=== PATIENT | male | born 1970 | race Caucasian/White ===

== ENCOUNTER 2024-11-19 13:05 | Outpatient (AMB) | payer OTHER, SELFPAY ==
--- NOTE | 2024-11-19 13:12 | A.OFFVIS_ITS ---
Vital Signs 11/19/24 13:14 Height 6 ft 2 in Weight 208 lb 8 oz BMI 26.8 BP 147/94 H Blood Pressure Location Lt brachial Position Sitting Pulse 84 Pulse Source Pulse Oximeter Pulse Oximetry (%) 100 Oxygen Delivery Method Room Air Intake Visit Reasons: Neck pain Intake Note: Pain today 12/24 Teletypewriter Installer Required: No Accompanied by: Self / Same As Patient Allergies No Known Allergies Allergy (Verified 11/19/24 13:14) HPI Comments Details: The patient is a 54-year-old male presenting with neck pain and cervical spine conditions. The patient reports that the pain started about a year and a half ago, initially on the right side. 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 The pain recently exacerbated around 3 months ago, reaching a constant severity of 8-10/10, impacting daily activities, work and sleep quality. The pain is radiating to the right arm, particularly affecting the thumb, with associated numbness and tightness accentuated by certain movements, such as overhead lifting. Denies previous spine surgery or injections. Patient is starting physical therapy on 11/20/24 at [facility]. Recent cervical spine MRI is noted for multilevel cervical degenerative changes with facet arthropathy and bone spurs, most pronounced at C5-C6 with disc extrusion contributing to severe bilateral foraminal stenosis. - Onset and Timing: Initial onset approximately 1.5 years ago; recent exacerbation 3 months prior. - Quality and Character: Constant, severe, described as tightness, throbbing, pounding, stabbing, sharp, tugging, pulling, wrenching, burning, tingling, sore, dull, hurting, aching; score 8-10/10. - Primary Location: Right side of the neck. - Radiation: Right arm down to the thumb. - Exacerbating Factors: Overhead lifting, certain neck movements, and sitting at a kitchen table. - Alleviating Factors: Certain neck positions; looking down feels better. - Functional Interference: Affects sleep (3-5 hours), driving, and sitting positions. - Affect: Pain has significantly impacted mood and sleep. - Analgesia: Current pain level ranges from 8 to 10. Medications tried include ibuprofen, muscle relaxers, and gabapentin with limited success. - Adverse Effects: No significant adverse effects reported; gabapentin resulted in feeling unwell. - Activities of Daily Living: Significantly affected, notably sleep and driving. - Aberrant Drug Related Behaviors: None reported. Oswestry Neck Pain Disability Score=19 [facility] Medical History (Updated 11/20/24 @ 20:04 by ZOHRA Gomez) Hypercholesteremia Degenerative disc disease, cervical Chronic neck and back pain Cervical spondylosis Cervical radiculopathy Social History (Updated 11/19/24 @ 13:27 by Tala Palmer) Alcohol intake: current Patient Tobacco Use Status: Never used Tobacco Review of Systems Const Details: - Musculoskeletal: Reports neck pain on the right side, radiation to the right arm, tightness, and effect on sleep. Denies shoulder, jaw, or ear pain. - Neurological: Denies headaches, blurred vision or hearing loss; reports numbness and tingling in the right arm. Denies bladder or bowel dysfunction or saddle anesthesia. All systems reviewed & are unremarkable except as noted in HPI and below Physical Exam Vital Signs: Last Vital Signs Pulse 84 11/19/24 13:14 BP 147/94 H 11/19/24 13:14 Pulse Ox 100 11/19/24 13:14 Oxygen Delivery Method Room Air 11/19/24 13:14 BMI result Body Mass Index 26.8 General: Appears afebrile. Alert and oriented. Mood and affect appropriate. Follows and participates in conversation appropriately. Respiratory effort is unlabored. No cough. No nasal discharge. Able to transition from sit to stand unassisted. Ambulates with bilaterally normal heel strike and toe off. Neck Other: Patient with decreased cervical ROM in all planes/especially with lateral rotation on the right. Reports increased pain with cervical extension, whereas flexion provides pain relief. Spurling compression test equivocal. Pain is unchanged by Spurling maneuver with retraction. Elvey's tension test positive on the right, with radiation of pain from neck to wrist and right thumb. Lhermitte's test was negative. DTR intact, +2 and symmetrical. Patient demonstrated 5/5 motor strength of bilateral upper extremities. 2 + radial pulses. Significant tightness throughout right upper trapezius as well as TTP throughout bilateral upper trapezius muscles. No paravertebral tenderness over facet joints bilaterally. Multiple taut bands palpated throughout bilateral upper trapezius and rhomboid muscles. Neck: Yes normal visual inspection, Yes no lymphadenopathy, Yes supple, No anterior neck swelling, Yes no JVD, No prominent supraclavicular fat pad and No prominent dorsocervical fat pad Back/Spine/Pelvis Cervical Spine: No collar present, cervical muscular tenderness, pain with cervical ROM, No Cervical spine scars present, cervical spasm, No Cervical spine tenderness and No step off deformity Thoracic/Lumbar Spine: thoracic and lumbar spine normal to inspection, No Thoracic/lumbar spine scar(s), thoraco-lumbar ROM normal, No thoracic spinal tenderness and No lumbar spinal tenderness Results Reviewed Results Reviewed: MR CERVICAL SPINE WITHOUT CONTRAST at [facility] 10/09/24 INDICATION: Cervicalgia. TECHNIQUE: Noncontrast MR of the cervical spine was performed according to protocol with multiplanar fast spin echo and axial gradient echo T2 star imaging. COMPARISON: None. FINDINGS: Alignment and Curvature: Grade 1 retrolisthesis of C5 on C6. Posterior Fossa: Mucosal thickening of maxillary sinuses. Cervical Cord: No intramedullary signal abnormality. Vertebral Body Heights: No significant height loss. Marrow Signal: No significant abnormality. Discs: Multilevel degenerative disc desiccation with loss of disc height at C5- C6. Craniocervical junction is patent. C2-C3: There is no significant canal or foraminal stenosis. C3-C4: Disc osteophyte complex without significant spinal canal stenosis. Facet and uncovertebral hypertrophy with mild bilateral foraminal stenosis. C4-C5: Disc osteophyte complex with left paracentral protrusion, indenting the left ventral cord with mild spinal canal stenosis. Facet and uncovertebral hypertrophy. Moderate left and mild right foraminal stenosis. C5-C6: Disc osteophyte complex with disc bulge and bilateral paracentral/foraminal extrusion with mild inferior migration. Facet and uncovertebral hypertrophy. Mild spinal canal and severe bilateral foraminal stenosis. C6-C7: Disc osteophyte complex, facet and uncovertebral hypertrophy. Moderate right and mild left foraminal stenosis. No significant spinal canal stenosis. C7-T1: There is no significant canal or foraminal stenosis. The imaged paraspinal soft tissues appear unremarkable. IMPRESSION: Multilevel degenerative changes of the cervical spine as described. Findings are most pronounced at C5-C6 with disc extrusion contributing to severe bilateral foraminal stenosis. Assessment & Plan Assessment & Plan (1) Spondylolisthesis, cervical region: Code(s): M43.12 - Spondylolisthesis, cervical region Category: Medical (2) Cervical spondylosis: Code(s): M47.812 - Spondylosis without myelopathy or radiculopathy, cervical region Category: Medical (3) Neuroforaminal stenosis of cervical spine: Code(s): M48.02 - Spinal stenosis, cervical region Category: Medical (4) Degenerative disc disease, cervical: Code(s): M50.30 - Other cervical disc degeneration, unspecified cervical region Category: Medical (5) Muscle spasms of neck: Code(s): M62.838 - Other muscle spasm Category: Medical Plan Physical therapy is starting on 11/20/24 at [facility], will be pursued to address cervical spine stabilization, posture, reduce muscle stiffness and pain. Will obtain cervical flexion and extension imaging to assess instability and follow up on recent MRI findings. Patient's neck symptoms are predominantly axial and will be confirmed with Bilateral Diagnostic C4-C5-C6 MBB with local and fluoroscopy for potential cervical RFA vs Sprint PNS trial a longer term relief. Information pamphlets were provided to patient today and visual spine and Sprint PNS models were utilized for education. Expectations, risks and benefits were reviewed. Patient is aware he will be contacted to schedule this procedure. Tylenol Arthritis and magnesium supplementation are recommended for ongoing pain management, and the patient is advised against heavy lifting and improper sleep positions to mitigate risk factors. Lifestyle adjustments, including posture correction and understanding the triggers of inflammation (dietary and activity- related factors), were outlined. All questions and concerns have been answered and patient agreed with the plan. Follow up after injections and sooner as needed. Patient was informed and verbally consented to the use of an ambient scribe for clinic note documentation during this visit. Orders: Orders XR cervical spine min 6V 11/19/24 M43.12 - Spondylolisthesis, cervical region, M47.812 - Spondylosis without myelopathy or radiculopathy, cervical region, M48.02 - Spinal stenosis, cervical region Patient Instructions: - Begin physical therapy at the designated [facility] location. - Use Tylenol Arthritis as needed for pain, and consider magnesium glycinate at bedtime. - Avoid heavy lifting and poor sleeping positions (e.g., stomach sleeping). - Attend scheduled diagnostic cervical MBB injections as planned. - Report any exacerbation of symptoms, such as increased weakness or numbness. - Follow dietary recommendations to limit sugar and inflammatory foods. - Consider massage or acupuncture for complementary therapy. - Watch for any changes in movement or unusual symptoms. Coding Level of Care Code New Pt Level 4 (48321) Diagnoses Spondylolisthesis, cervical region M43.12 Cervical spondylosis M47.812 Neuroforaminal stenosis of cervical spine M48.02 Degenerative disc disease, cervical M50.30 Muscle spasms of neck M62.838
[2024-11-19 13:14] VITALS: BP 147/94; PULSE 84; O2SAT 100; BMI 26.8
--- OUTSIDE RECORDS SUMMARY | 2024-11-19 15:17 | XMS_ITS | Clinical Summary ---
Author Organization [facility] Address [address] [place] [address] Care Team Providers Care Relocation Services Specialist Name Role Phone Michelle Jorgensen NP Primary Care Provider Source Comments PLEASE NOTE, if this patient is a minor, it may be UNLAWFUL to discuss sensitive information that is contained in these records (such as FAMILY PLANNING, MENTAL HEALTH or SUBSTANCE ABUSE) with the minor patient's parent or other person without the patient's specific authorization.[facility] Allergies No known active allergies Medications gabapentin (NEURONTIN) 300 mg capsuleIndication s:Cervical radiculopathy Take 1 Capsule by mouth 2 (two) times daily as needed for other reason (Pain). 90 Capsule 1 5 Active cyclobenzaprine (FLEXERIL) 10 mg tabletIndications :Cervical radiculopathy Take 1 Tablet by mouth 2 (two) times daily as needed for muscle spasms 30 Tablet 5 11/03/19 25 Discontinu ed(Cancell ed) Active Problems Problem Noted Date Diagnosed Date Cervical radiculopathy 10/15/2024 Overview (10/15/2024): 10/09/24 MRI cervical Impression Mild degenerative changes of the cervical spine as described. Findings are most pronoused at C5-C6 with disc extrusion contributing to several bilateral foraminal stenosis. Encounters Date Type Department Care Team Description 11/02/2024 4:00 PM EDT Office Visit [address] [phone] Michelle Jorgensen NP Routine adult health maintenance (Primary Dx); Screening for colon cancer; Cervical radiculopathy; Hypercholesteremia; Immunization due 10/07/2024 Interim Notes [address] [phone] Nanci Segovia [place] 10/04/2024 Results Follow-Up [address] [phone] Michelle Jorgensen NP BLOOD COUNT COMPLETE AUTO&AUTO DIFRNTL WBC, COMPREHENSIVE METABOLIC PANEL, HEMOGLOBIN GLYCOSYLATED A1C, Additional followed-up results: 6 10/02/2024 10:20 AM EDT Office Visit [address] [phone] Michelle Jorgensen NP Cervical radiculopathy (Primary Dx); Screening for heart disease; Diabetes mellitus screening; Routine lab draw; Immunization due; Abnormal blood chemistry; Eye injury, unspecified laterality, initial encounter from Last 3 Months Immunizations Immunization Administration Dates Next Due TDAP 10/02/2024 ZOSTER VACCINE, RECOMBINANT (SHINGRIX) Family History Medical History Relation Name Comments No Known Problems Father Lumbar disc disease Mother Lumbar disc disease Sister 2 Relation Name Status Comments Daughter Alive Father Alive Mother Alive Sister 1 Alive Sister 2 Alive Social History Tobacco Use Types Packs/Day Years Used Date Smoking Tobacco: Never Passive Smoke Exposure: Never Smokeless Tobacco: Never Tobacco Cessation:Counseling Given: Not Answered Alcohol Use Standard Drinks/Week Comments Yes 0 (1 standard drink = 0.6 oz pur e alcohol) occasionally Sex and Gender Information Value Date Recorded Sex Assigned at Male 10/02/2024 8:06 AM PDT Legal Sex Male 10:11 AM PDT Gender Identity Male 10/02/2024 8:06 AM PDT Sexual Orientation Straight 10/02/2024 8: 06 AM PDT Last Filed Vital Signs Vital Sign Reading Time Taken Comments Blood Pressure 132/70 11/02/2024 4:02 PM EDT Pulse 73 11/02/2024 4:02 PM EDT Temperature 36 ??C (96.8 ??F) 11/02/2024 4:02 PM EDT Respiratory Rate 16 11/02/2024 4:02 PM EDT Oxygen Saturation 96% 11/02/2024 4:02 PM EDT Inhaled Oxygen Concentration - - Weight 97.9 kg (215 lb 12.8 oz) 11/02/2024 4:02 PM EDT Height 185.4 cm (6' 1 ) 11/02/2024 4:02 PM EDT Body Mass Index 28.47 11/02/2024 4:02 PM EDT Plan of Treatment Health Maintenance Due Date Last Done Comments Imm-Hepatitis B (1 of 3 - 19 + 3-dose series) 1989 CT Colonography 2015 Colonoscopy 2015 Colorectal Cancer Screening 2015 FIT/gFOBT 2015 Fecal DNA 2015 Flexible Sigmoidoscopy 2015 Qaw-[id number]-60 ( season) 2024 021, 07/19/2020 Imm-Zoster, Recombinant (2 of 2) 12/28/2024 11/03/19 25 Imm-Influenza (Season Ended) 2025 Annual Wellness (Adult): Ind icated (All Coverage) 11/02/2025 11/02/2024 Anxiety Screening 11/02/2025 11/02/2024 Hypertension Screening (#1) 11/02/2025 Tobacco Screening 11/02/2025 11/02/2024 Diabetes Screening 10/03/2027 10/02/2024, 10/02/2024 Lipid Screening 10/02/2029 10/02/2024 Imm-DTaP/Tdap/Td (2 - Td or Tdap) 10/02/2034 025 HIV Screening Completed 10/02/2024 Hepatitis C Screening Completed 10/02/2024 Alcohol and Drug Screen Completed 11/02/2024 Depression Annual Screen Completed 11/02/2024 Procedures Procedure Name Priority Date/Time Associated Diagnosis Comments IMAGING SCANNED DOCUMENT 10/09/2024 3:00 AM EDT XR ORBIT (R/O METAL) Routine 10/09/2024 3:00 AM EDT Eye injury, unspecified laterality, initial encounter SYPHILIS ANTIBODY CASCADING REFLEX Routine 10/02/2024 9:53 AM EDT Screening for heart disease Routine lab draw TSH W/RFLX FREE T4 Routine 10/02/2024 9: 53 AM EDT Screening for heart disease Routine lab draw LIPID PANEL Routine 10/02/2024 9:53 AM EDT Screening for heart disease Diabetes mellitus screening Routine lab draw HIV 1/2 AG & AB W/RFLX (4TH GEN) Routine 10/02/2024 9:53 AM EDT Screening for heart disease Routine lab draw HEPATITIS C AB W/RFLX HCV RNA, QT, RT PCR Routine 10/02/2024 9:53 AM EDT Screening for heart disease Routine lab draw HEMOGLOBIN GLYCOSYLATED A1C Routine 10/02/2024 9:53 AM EDT Screening for heart disease Diabetes mellitus screening Routine lab draw COMPREHENSIVE METABOLIC PANEL Routine 10/02/2024 9:53 AM EDT Screening for heart disease Routine lab draw BLOOD COUNT COMPLETE AUTO&AUTO DIFRNTL WBC Routine 10/02/2024 9:53 AM EDT Screening for heart disease Routine lab draw from Last 3 Months Results * XR ORBIT (R/O METAL) [[id number]] ([facility]) (10/09/2024 3:00 AM EDT) 10/09/2024 3:00 AM EDT Impressions [facility] - 10/09/2024 3:14 PM EDT IMPRESSION: ?? No evidence of radiopaque foreign body. Nicolás Penny MD Signed by Nicolás Penny MD [facility] provided for [facility] Radiology Read by: Nicolás Penny M.D Reviewed and Electronically Signed by: Nicolás Penny M.D [facility] - 10/09/2024 3:14 PM EDT Original Report PROCEDURE: ??XR ORBITS SERIES INDICATION: ??Pre MRI screening. TECHNIQUE: ??three view(s) of the orbits were obtained. FINDINGS: ? There is no evidence of a radiopaque orbital foreign body. The visualized paranasal sinuses are clear. ?? Procedure Note Default, [facility] Provider - 10/09/2024 Original Report PROCEDURE: XR ORBITS SERIES INDICATION: Pre MRI screening. TECHNIQUE: three view(s) of the orbits were obtained. FINDINGS: There is no evidence of a radiopaque orbital foreign body. The visualized paranasal sinuses are clear. IMPRESSION: IMPRESSION: No evidence of radiopaque foreign body. Nicolás Penny MD Signed by MD Devika Espino provided for [facility] Radiology Read by: Nicolás Penny M.D Reviewed and Electronically Signed by: Nicolás Penny M.D Michelle Jorgensen COBBLER APPRENTICE IMG XRAY Edited Result - Final [facility] Corporate Office [address], [address] [place] [address], [place] [phone] * IMAGING SCANNED DOCUMENT (10/09/2024 3:00 AM EDT) 10/09/2024 3:00 AM EDT Michelle Jorgensen COBBLER APPRENTICE SCAN IMAGING Final Result * HEPATITIS C AB W/RFLX HCV RNA, QT, RT PCR (10/02/2024 9:53 AM EDT) HEPATITIS C ANTIBODY NON-REACT GIRISH NON-REACT GIRISH [employer] [facility] Comment: HCV antibody was non-reactive. There is no laboratory evidence of HCV infection. In most cases, no further action is required. However, if recent HCV exposure is suspected, a test for HCV RNA (test code 90924) is suggested. For additional information please refer to http://education.[employer]/faq/CFS98q6 (This link is being provided for informational/ educational purposes only.) Blood Blood / Unknown 10/02/2024 9 :53 AM EDT 10/02/2024 9:54 AM EDT Narrative [employer] [facility] - 10/03/2024 6:55 AM EDT FASTING:NO Michelle Jorgensen COBBLER APPRENTICE LAB - BLOOD DRAW Edited Result - Final Performing Organization Address [facility]/ZIP Co de Phone Number [employer] [address] [address], [employer] [address] [phone] * SYPHILIS ANTIBODY CASCADING REFLEX (10/02/2024 9:53 AM EDT) T. PALLIDUM AB, EIA NEGATIVE NEGATIVE [facility] Comment: No antibodies to T. pallidum (the agent causing syphilis) were detected in the specimen. This result, however, does not exclude very recent T. pallidum infection; testing of a second specimen, collected 2-4 weeks after this specimen, is recommended if the index of suspicion for recent infection is high. Blood Blood / Unknown 10/02/2024 9 :53 AM EDT 10/02/2024 9:54 AM EDT Narrative [employer] [facility] - 10/03/2024 6:55 AM EDT FASTING:NO Michelle Jorgensen COBBLER APPRENTICE LAB - BLOOD DRAW Final Result Performing Organization Address City/[facility]/ZIP Co de Phone Number [employer] [address] [address], [employer] [address] [address] * HIV 1/2 AG & AB W/RFLX (4TH GEN) (10/02/2024 9:53 AM EDT) HIV AG/AB, 4TH GEN NON-REAC TIVE NON-REAC TIVE [employer] [facility] Comment: HIV-1 antigen and HIV-1/HIV-2 antibodies were not detected. There is no laboratory evidence of HIV infection. PLEASE NOTE: This information has been disclosed to you from records whose confidentiality may be protected by state law. ??If your state requires such protection, then the state law prohibits you from making any further disclosure of the information without the specific written consent of the person to whom it pertains, or as otherwise permitted by law. A general authorization for the release of medical or other information is NOT sufficient for this purpose. ?? For additional information please refer to http://education.[employer]Sm[employer]/faq/RAW401 (This link is being provided for informational/ educational purposes only.) The performance of this assay has not been clinically validated in patients less than 2 years old. Blood Blood / Unknown 10/02/2024 9 :53 AM EDT 10/02/2024 9:54 AM EDT Narrative [employer] [facility] - 10/03/2024 6:55 AM EDT FASTING:NO [facility] [employer] COBBLER APPRENTICE LAB - BLOOD DRAW Final Result Performing Organization Address City/[facility]/ZIP Co de Phone Number [employer] [address] [address], [employer] [address] [address] * TSH W/RFLX FREE T4 (10/02/2024 9:53 AM EDT) Pathologist [facility] TSH W/REFLEX TO FT4 0.66 0.40 - 4.50 mIU/L [facility] Blood Blood / Unknown 10/02/2024 9 :53 AM EDT 10/02/2024 9:54 AM EDT Narrative [employer] [facility] - 10/03/2024 6:55 AM EDT FASTING:NO [facility] COBBLER APPRENTICE LAB - BLOOD DRAW Edited Result - Final Performing Organization Address City/[facility]/ZIP Co de Phone Number [employer] [address] [address], [employer] [address] [address] * BLOOD COUNT COMPLETE AUTO&AUTO DIFRNTL WBC (10/02/2024 9:53 AM EDT) WHITE BLOOD CELL COUNT 8.5 3.8 - 10.8 Thousand/ uL [employer] [facility] RED BLOOD CELL COUNT 5.32 4.20 - 5.80 Million/u L [employer] [facility] HEMOGLOBIN 16.6 13.2 - 17.1 g/dL [employer] [facility] HEMATOCRIT 49.2 38.5 - 50.0 % [employer] [facility] MCV 92.5 80.0 - 100.0 fL [employer] [facility] MCH 31.2 27.0 - 33.0 pg [employer] [facility] MCHC 33.7 32.0 - 36.0 g/dL [facility] Comment: For adults, a slight decrease in the calculated MCHC value (in the range of 30 to 32 g/dL) is most likely not clinically significant; however, it should be interpreted with caution in correlation with other red cell parameters and the patient's clinical condition. RDW 13.0 11.0 - 15.0 % [employer] [facility] PLATELET COUNT 217 140 - 400 Thousand/ uL [employer] [facility] MPV 11.1 7.5 - 12.5 fL [employer] [facility] ABSOLUTE NEUTROPHILS 7,047 1,500 - 7,800 cells/uL [employer] [facility] ABSOLUTE LYMPHOCYTES 952 850 - 3,900 cells/uL [employer] [facility] ABSOLUTE MONOCYTES 408 200 - 950 cells/uL [employer] [facility] ABSOLUTE EOSINOPHILS 60 15 - 500 cells/uL [employer] [facility] ABSOLUTE BASOPHILS 34 0 - 200 cells/uL [employer] [facility] NEUTROPHILS PCT 82.9 % [employer] [facility] LYMPHOCYTES 11.2 % [facility] MONOCYTES 4.8 % [employer] [employer] [facility] EOSINOPHILS 0.7 % [facility] BASOPHILS 0.4 % [employer] [facility] Blood Blood / Unknown 10/02/2024 9 :53 AM EDT 10/02/2024 9:54 AM EDT Narrative [employer] [facility] - 10/03/2024 6:55 AM EDT FASTING:NO Michelle Jorgensen NP LAB - BLOOD DRAW Edited Result - Final [employer] [facility] [address] [address], [employer] [facility] [address] [place] [address] * HEMOGLOBIN GLYCOSYLATED A1C (10/02/2024 9:53 AM EDT) HEMOGLOBIN A1C 5.3 <5.7 % [facility] Comment: For the purpose of screening for the presence of diabetes: <5.7% ? Consistent with the absence of diabetes 5.7-6.4% ?Consistent with increased risk for diabetes ?(prediabetes) > or =6.5% ??Consistent with diabetes This assay result is consistent with a decreased risk of diabetes. Currently, no consensus exists regarding use of hemoglobin A1c for diagnosis of diabetes in children. According to [place] Diabetes Association (ADA) guidelines, hemoglobin A1c <7.0% represents optimal control in non- diabetic patients. Different metrics may apply to specific patient populations. Standards of Medical Care in Diabetes(ADA). ?? Blood Blood / Unknown 10/02/2024 9 :53 AM EDT 10/02/2024 9:54 AM EDT Narrative [employer] - 10/03/2024 6:55 AM EDT FASTING:NO Michelle Jorgensen NP LAB - BLOOD DRAW Edited Result - Final [employer] [address] [place] [address], [facility] [address] [place] [phone] * (ABNORMAL) LIPID PANEL (10/02/2024 9:53 AM EDT) Pathologist [facility] CHOLESTEROL, TOTAL 225(H) <200 mg/dL [facility] HDL CHOLESTEROL 51 > OR = 40 mg/dL [facility] TRIGLYCERIDES 188(H) <150 mg/dL [facility] LDL-CHOLESTEROL 142(H) 99 mg/dL (calc) [facility] Comment: Reference range: <100 Desirable range <100 mg/dL for primary prevention; ?? <70 mg/dL for patients with CHD or diabetic patients with > or = 2 CHD risk factors. LDL-C is now calculated using the Josefina calculation, which is a validated novel method providing better accuracy than the Friedewald equation in the estimation of LDL-C. Sim ASHFORD et al. ZAHRA. 2013;310(19): 6598-7601 (http://education.Buyoo/faq/EFU419) CHOL/HDLC RATIO 4.4 <5.0 (calc) [facility] NON-HDL CHOLESTEROL 174(H) <130 mg/dL (calc) [facility] Comment: For patients with diabetes plus 1 major ASCVD risk factor, treating to a non-HDL-C goal of <100 mg/dL (LDL-C of <70 mg/dL) is considered a therapeutic option. Blood Blood / Unknown 10/02/2024 9 :53 AM EDT 10/02/2024 9:54 AM EDT Narrative [employer] - 10/03/2024 6:55 AM EDT FASTING:NO Michelle Jorgensen NP LAB - BLOOD DRAW Final Result [employer] [address] [address], [employer] [address] [address] * COMPREHENSIVE METABOLIC PANEL (10/02/2024 9:53 AM EDT) GLUCOSE 106 65 - 139 mg/dL [facility] Comment: ?Non-fasting reference interval UREA NITROGEN (BUN) 15 7 - 25 mg/dL [employer] [facility] CREATININE (blood) 0.86 0.70 - 1.30 mg/dL [employer] [facility] EGFR 103 > OR = 60 mL/min/1. 73m2 [employer] [place] [employer] BUN/CREATININE RATIO SEE NOTE: [facility] Comment: ?? Not Reported: BUN and Creatinine are within ?? reference range. ? SODIUM 139 135 - 146 mmol/L [facility] POTASSIUM 5.1 3.5 - 5.3 mmol/L [facility] CHLORIDE 104 98 - 110 mmol/L [facility] CARBON DIOXIDE 25 20 - 32 mmol/L [facility] CALCIUM 9.5 8.6 - 10.3 mg/dL [facility] PROTEIN, TOTAL 7.6 6.1 - 8.1 g/dL [facility] ALBUMIN 4.8 3.6 - 5.1 g/dL [facility] GLOBULIN 2.8 1.9 - 3.7 g/dL (calc) [facility] ALBUMIN/GLOBULI N RATIO 1.7 1.0 - 2.5 (calc) [employer] BILIRUBIN, TOTAL 1.0 0.2 - 1.2 mg/dL [employer] [facility] ALKALINE PHOSPHATASE 71 35 - 144 U/L [employer] [facility] AST 18 10 - 35 U/L [employer] [facility] ALT 29 9 - 46 U/L [employer] [facility] Blood Blood / Unknown 10/02/2024 9 :53 AM EDT 10/02/2024 9:54 AM EDT Narrative [employer] [facility] - 10/03/2024 6:55 AM EDT FASTING:NO Michelle Jorgensen NP LAB - BLOOD DRAW Edited Result - Final [employer] [facility] [address] [address], [facility] [facility] [address] [place] [address] from Last 3 Months Insurance Made[employer] Market Member Subscriber Plan / Payer (Ef fective 2023-Present) Name:Manuel Meadows Relation to Subscriber:Self Name:Dori Manuel Payer ID:[id number] Type:Indemnity Address: [facility] [address] [place] [address] Care Teams Relocation Services Specialist Relationship Specialty Start Date End Date Michelle Jorgensen NP [address] [place] [address] PCP - General Family Medicine, COBBLER APPRENTICE 10/12/24
== END 2024-11-19 13:50 | disposition home or self-care (01) ==
LOC: HO.PMC 13:05
PROVIDERS: Referring Provider Dentist General Practice; Visit Provider Nurse Practitioner Family
DX: M43.12 Spondylolisthesis, cervical region (principal); M47.812 Spondylosis without myelopathy or radiculopathy, cervical region; M48.02 Spinal stenosis, cervical region; M50.30 Other cervical disc degeneration, unspecified cervical region; M62.838 Other muscle spasm
CPT/HCPCS: 99204

== ENCOUNTER → 2024-11-19 13:05 | Outpatient (BNVA) | payer OTHER, SELFPAY | PROVIDERS: Referring Provider Dentist General Practice; Visit Provider Nurse Practitioner Family | DX: M43.12 Spondylolisthesis, cervical region (principal); M47.812 Spondylosis without myelopathy or radiculopathy, cervical region; M48.02 Spinal stenosis, cervical region; M50.30 Other cervical disc degeneration, unspecified cervical region; M62.838 Other muscle spasm | CPT/HCPCS: 99202 ==

== ENCOUNTER 2024-12-17 06:09 | Outpatient (REF) | payer OTHER, SELFPAY ==
--- NOTE | ~2024-12-17 | FL_ITS ---
EXAMINATION: FL GUIDANCE ONLY HISTORY: M43.12 - Spondylolisthesis, cervical region COMPARISON: None available. TECHNIQUE: Fluoroscopy time: 0.1 minutes. Cumulative Dose: 0.607 mGy. DAP: 0.22945 mGym2 Images: 2. FINDINGS: Fluoroscopic spot films of the cervical spine demonstrate needles and contrast material in the right neck. FL/FL guidance in treatment room IMPRESSION: Fluoroscopy during procedure. Please see procedure report for additional information. Electronically signed by: Kevan Quiles MD 12/17/2024 03:18 PM EDT
--- OUTSIDE RECORDS SUMMARY | 2024-12-17 06:13 | XMS_ITS | Clinical Summary ---
Author Organization [facility] Address [address] [place] [address] Phone Care Team Providers Care Grease Man Name Role Phone Physician, No Pcp Primary Care Provider Unavaila ble Allergies No known active allergies Medications methocarbamoL (ROBAXIN) 500 mg tablet Take 1 tablet (500 mg total) by mouth 2 (two) times a day for 10 days. 20 tablet 09/30/2024 Active Encounters Date Type Department Care Team Description 09/30/2024 3:54 PM EDT - 09/30/2024 4:54 PM EDT Emergency [facility] Emergency [address] [place] [address] Cervical radiculopathy (Primary Dx) Discharge Disposition: Home or Self Care from Last 3 Months Social History Tobacco Use Types Packs/Day Years Used Date Smoking Tobacco: Never Assessed Sex and Gender Information Value Date Recorded Sex Assigned at Male 09/30/2024 4:31 PM EDT Legal Sex Male 3:36 PM EDT Gender Identity Male 09/30/2024 4:31 PM EDT Sexual Orientation Straight 09/30/2024 4: 31 PM EDT Last Filed Vital Signs Vital Sign Reading Time Taken Comments Blood Pressure 157/84 09/30/2024 3:41 PM EDT Pulse 68 09/30/2024 3:41 PM EDT Temperature 36.5 C (97.7 F) 09/30/2024 3:41 PM EDT Respiratory Rate 16 09/30/2024 3:41 PM EDT Oxygen Saturation 96% 09/30/2024 3:41 PM EDT Inhaled Oxygen Concentration - - Weight 90.7 kg (200 lb) 09/30/2024 3:41 PM EDT Height 185.4 cm (6' 1 ) 09/30/2024 3:41 PM EDT Body Mass Index 26.39 09/30/2024 3:41 PM EDT Plan of Treatment Health Maintenance Due Date Last Done Comments DTaP,Tdap,and Td Vaccines (1 - Tdap) 1989 Hepatitis B Vaccines (1 of 3 - 19+ 3-dose series) 1989 Pneumococcal Vaccine: 50+ Ye ars (1 of 1 - PCV) 2020 Zoster Vaccines (1 of 2) 2020 COVID-19 Vaccine (1 - 2023-2 5 season) 2024 Cholesterol Screening (Lipid Panel) 10/01/2024 Colorectal Cancer Screening: Colonoscopy 10/01/2024 Depression Screening 10/01/2024 HIV Screening 10/01/2024 Hepatitis C Screening 10/01/2024 Social Influencers of Health Screening 10/01/2024 Influenza Vaccine (Season Ended) 2025 HIB Vaccines Aged Out No longer eligi ble based on patient's age to complete this topic HPV Vaccines Aged Out No longer eligi ble based on patient's age to complete this topic Hepatitis A Vaccines Aged Out No long er eligible based on patient's age to complete this topic IPV Vaccines Aged Out No longer eligi ble based on patient's age to complete this topic MMR Vaccines Aged Out No longer eligi ble based on patient's age to complete this topic Meningococcal ACWY Vaccine Aged Out N o longer eligible based on patient's age to complete this topic Meningococcal B Vaccine Aged Out No l onger eligible based on patient's age to complete this topic Pneumococcal Vaccine: Pediat rics (0 to 5 Years) and At-Risk Patients (6 to 64 Years) Aged Out No longer eligible b ased on patient's age to complete this topic RSV Immunization Patients Un janki 20 months Aged Out No longer eligible b ased on patient's age to complete this topic Varicella Vaccines Aged Out No longer eligible based on patient's age to complete this topic Insurance [employer] Care Teams Grease Man Relationship Specialty Start Date End Date Physician, No Pcp PCP - General 09/30/24
== END 2024-12-17 06:10 | disposition home or self-care (01) ==
LOC: CF 06:09
PROVIDERS: Visit Provider Internal Medicine
DX: M43.12 Spondylolisthesis, cervical region (principal); M47.812 Spondylosis without myelopathy or radiculopathy, cervical region
CPT/HCPCS: 64490; 64491; J2003; J2795; Q9967

== ENCOUNTER 2024-12-17 09:38 | Outpatient (AMB) | payer OTHER, SELFPAY ==
--- NOTE | 2024-12-17 09:40 | MHC.OFFVIS ---
Vital Signs 12/17/24 09:44 12/17/24 10:23 Height 6 ft 2 in 6 ft 2 in Weight 208 lb 208 lb BMI 26.7 26.7 BP 131/84 136/91 H Blood Pressure Location Lt brachial Lt brachial Position Sitting Sitting Respiration 16 Pulse 62 57 Pulse Source Pulse Oximeter Pulse Oximeter Pulse Oximetry (%) 98 99 Oxygen Delivery Method Room Air Room Air Intake Visit Reasons: Right Dx C4-C5-C6 MBB Allergies No Known Allergies Allergy (Verified 11/19/24 13:14) HPI HPI Right Dx C4-C5-C6 MBB: Details: Patient presents for scheduled procedure. Denies any recent cough, cold, infection, fever or other significant changes in medical history since last office visit. [facility] Medical History (Updated 11/20/24 @ 20:04 by ZOHRA Gomez) Hypercholesteremia Degenerative disc disease, cervical Chronic neck and back pain Cervical spondylosis Cervical radiculopathy Social History (Updated 11/19/24 @ 13:27 by Tala Palmer) Alcohol intake: current Patient Tobacco Use Status: Never used Tobacco Physical Exam Vital Signs: Last Vital Signs Pulse 57 12/17/24 10:23 Resp 16 12/17/24 09:44 BP 136/91 H 12/17/24 10:23 Pulse Ox 99 12/17/24 10:23 Oxygen Delivery Method Room Air 12/17/24 10:23 BMI result Body Mass Index 26.7 Office Procedures Cervical/Thoracic Facet Inj Details: Diagnostic Cervical Medial Branch Block, right C4, C5, C6 medial branches After obtaining written consent, pre-procedure blood pressure and pulse were recorded and are in the nursing record for review. The patient was placed in a lateral position. The respective cervical area was prepped with chloraprep and draped in sterile fashion. The skin over the target medial branch nerves was anesthetized with 0.5% lidocaine. A 25 gauge 1.5 inch needle was inserted into the target medial branch nerve under fluoroscopic guidance. No paresthesias were elicited with needle placement and aspiration was negative for blood and CSF. Next, 0.2cc of omnipaque 180 was injected to verify positioning. Next 0.5 ml 0.5% ropivicaine was injected (0.5 cc total per level). The identical procedure was performed at the remaining levels. The skin was cleansed and a sterile bandage was applied. Following the procedure the patient's vital signs were stable. The patient tolerated the procedure well and no complications were encountered. Following the procedure the patient's vital signs were stable. The patient was discharged home in good condition with post-procedural instructions. Time Out: Immediately prior to the procedure, the following was verbally confirmed that there is a signed consent form and that the correct patient, planned procedure, site and side are consistent with documentation and that necessary equipment and/or blood products are available prior to the start of the case. Complications: none EBL: <5 cc 55488 - with Fluoroscopy 13688 - second level, with Fluoroscopy Procedure code (CPT) selection complete Assessment & Plan Assessment & Plan (1) Cervical spondylosis: Code(s): M47.812 - Spondylosis without myelopathy or radiculopathy, cervical region Category: Medical Plan Patient is status post right C4, C5, C6 diagnostic medial branch blocks. Patient tolerated procedure well and was discharged home in stable condition with discharge instructions. All questions were answered. We will follow-up via telephone or in clinic to assess response to therapy. A follow-up appointment was made during today's visit. Orders: Orders AMB Facet Injection-Cervical/Thoracic Today Maco Durant MD M47.812 - Spondylosis without myelopathy or radiculopathy, cervical region FL guidance in treatment room Today Kelli Yung APRN, CLERICAL SUPPORT SPECIALIST M43.12 - Spondylolisthesis, cervical region Coding Level of Care Code Procedure Only Diagnoses Cervical spondylosis M47.812 CPT Codes Facet Injection Cervical/Thoracic - CPT: 10038 - with Fluoroscopy ([id number]) Facet Injection Cervical/Thoracic - CPT: 34423 - second level, with Fluoroscopy ([id number])
[2024-12-17 09:44] VITALS: BP 131/84; PULSE 62; RESP 16; O2SAT 98; BMI 26.7
[2024-12-17 10:23] VITALS: BP 136/91; PULSE 57; O2SAT 99; BMI 26.7
== END 2024-12-17 10:29 | disposition home or self-care (01) ==
LOC: HO.PMCPRC 09:38
PROVIDERS: Visit Provider Internal Medicine
DX: M47.812 Spondylosis without myelopathy or radiculopathy, cervical region (principal)
CPT/HCPCS: 64490; 64491

== ENCOUNTER 2024-12-28 11:17 | Outpatient (AMB) | payer OTHER, SELFPAY ==
--- NOTE | 2024-12-28 11:19 | A.OFFVIS_ITS ---
Vital Signs 12/28/24 11:22 Height 6 ft 2 in Weight 216 lb 4 oz BMI 27.8 BP 127/83 Blood Pressure Location Lt brachial Position Sitting Pulse 70 Pulse Source Pulse Oximeter Pulse Oximetry (%) 98 Oxygen Delivery Method Room Air Intake Visit Reasons: s/p right Dx C4-C5-C6 Intake Note: Pain today 5/10 Dressed Poultry Grader Required: No Accompanied by: Self / Same As Patient Allergies No Known Allergies Allergy (Verified 12/28/24 11:22) HPI Comments Details: The patient is a 54-year-old male presenting with right sided cervical radiculopathy and cervical arthritis. The patient underwent right-sided C4, C5, C6 medial branch blocks on December 17, which provided diagnostic and significant pain relief for approximately six hours, allowing him to drive without pain for two and a half hours post injections. Post-procedure, the patient reported significant improvement over the weekend, with the sensation of a knife-like pain in the neck subsiding, although burning and tingling persisted in the right hand and right thumb. Denies any significant right upper extremity weakness. The patient denies having carpal tunnel syndrome but describes a burning, tingling sensation extending through the right arm, culminating in an itchy f eeling in the hand. The MRI from October 09 showed severe bilateral foraminal stenosis at C5-C6, more pronounced on the right side, contributing to the patient's symptoms. Past Procedures: 12/17/24: Right Diagnostic C4-C5-C6 MBB-80% pain relief for 4 days PRIOR: The patient is a 54-year-old male presenting with neck pain and cervical spine conditions. The patient reports that the pain started about a year and a half ago, initially on the right side. Initially, no specific injury was noted, but the patient's work as an lead electrician, involving overhead lifting, could co ntribute to symptoms. The pain recently exacerbated around 3 months ago, reaching a constant severity of 8-10/10, impacting daily activities, work and sleep quality. The pain is radiating to the right arm, particularly affecting the thumb, with associated numbness and tightness accentuated by certain movements, such as overhead lifting. Denies previous spine surgery or injections. Patient is starting physical therapy on 11/20/24 at [facility]. Recent cervical spine MRI is noted for multilevel cervical degenerative changes with facet arthropathy and bone spurs, most pronounced at C5-C6 with disc extrusion contributing to severe bilateral foraminal stenosis. - Onset and Timing: Initial onset approximately 1.5 years ago; recent exacerbation 3 months prior. - Quality and Character: Constant, severe, described as tightness, throbbing, pounding, stabbing, sharp, tugging, pulling, wrenching, burning, tingling, sore, dull, hurting, aching; score 8-10/10. - Primary Location: Right side of the neck. - Radiation: Right arm down to the thumb. - Exacerbating Factors: Overhead lifting, certain neck movements, and sitting at a kitchen table. - Alleviating Factors: Certain neck positions; looking down feels better. - Functional Interference: Affects sleep (3-5 hours), driving, and sitting positions. - Affect: Pain has significantly impacted mood and sleep. - Analgesia: Current pain level ranges from 8 to 10. Medications tried include ibuprofen, muscle relaxers, and gabapentin with limited success. - Adverse Effects: No significant adverse effects reported; gabapentin resulted in feeling unwell. - Activities of Daily Living: Significantly affected, notably sleep and driving. - Aberrant Drug Related Behaviors: None reported. Oswestry Neck Pain Disability Score=19 [facility] Medical History (Updated 11/20/24 @ 20:04 by ZOHRA Gomez) Hypercholesteremia Degenerative disc disease, cervical Chronic neck and back pain Cervical spondylosis Cervical radiculopathy Social History (Updated 11/19/24 @ 13:27 by Tala Palmer) Alcohol intake: current Patient Tobacco Use Status: Never used Tobacco Review of Systems Const Details: - Neurological: Reports burning and tingling sensation in the right arm, denies carpal tunnel syndrome All systems reviewed & are unremarkable except as noted in HPI and below Physical Exam Vital Signs: Last Vital Signs Pulse 70 12/28/24 11:22 BP 127/83 12/28/24 11:22 Pulse Ox 98 12/28/24 11:22 Oxygen Delivery Method Room Air 12/28/24 11:22 BMI result Body Mass Index 27.8 General: Appears afebrile. Alert and oriented. Mood and affect appropriate. Follows and participates in conversation appropriately. Respiratory effort is unlabored. No cough. Able to transition from sit to stand unassisted. Ambulates with bilaterally normal heel strike and toe off. Neck Other: Mildly decreased cervical ROM due to pain. Reports increased pain with cervical extension, mildly with prolonged flexion. Spurling compression test equivocal. Pain is unchanged by Spurling maneuver with retraction. Elvey's tension test positive on the right, with radiation of pain from neck to wrist and right thumb. Lhermitte's test was negative. DTR intact, +2 and symmetrical. Patient demonstrated 5/5 motor strength of bilateral upper extremities. 2 + radial pulses. Significant tightness throughout right upper trapezius as well as TTP throughout bilateral upper trapezius muscles. No paravertebral tenderness over facet joints bilaterally. Multiple taut bands palpated throughout bilateral upper trapezius and rhomboid muscles. Neck: Yes normal visual inspection, Yes no lymphadenopathy, Yes supple, No anterior neck swelling, Yes no JVD, No prominent supraclavicular fat pad and No prominent dorsocervical fat pad Back/Spine/Pelvis Cervical Spine: No collar present, cervical muscular tenderness, pain with cervical ROM, No Cervical spine scars present, cervical spasm, No Cervical spine tenderness and No step off deformity Thoracic/Lumbar Spine: thoracic and lumbar spine normal to inspection, No Thoracic/lumbar spine scar(s), thoraco-lumbar ROM normal, No thoracic spinal tenderness and No lumbar spinal tenderness Results Reviewed Results Reviewed: MR CERVICAL SPINE WITHOUT CONTRAST at [facility] 10/09/24 INDICATION: Cervicalgia. TECHNIQUE: Noncontrast MR of the cervical spine was performed according to protocol with multiplanar fast spin echo and axial gradient echo T2 star imaging. COMPARISON: None. FINDINGS: Alignment and Curvature: Grade 1 retrolisthesis of C5 on C6. Posterior Fossa: Mucosal thickening of maxillary sinuses. Cervical Cord: No intramedullary signal abnormality. Vertebral Body Heights: No significant height loss. Marrow Signal: No significant abnormality. Discs: Multilevel degenerative disc desiccation with loss of disc height at C5- C6. Craniocervical junction is patent. C2-C3: There is no significant canal or foraminal stenosis. C3-C4: Disc osteophyte complex without significant spinal canal stenosis. Facet and uncovertebral hypertrophy with mild bilateral foraminal stenosis. C4-C5: Disc osteophyte complex with left paracentral protrusion, indenting the left ventral cord with mild spinal canal stenosis. Facet and uncovertebral hypertrophy. Moderate left and mild right foraminal stenosis. C5-C6: Disc osteophyte complex with disc bulge and bilateral paracentral/foraminal extrusion with mild inferior migration. Facet and uncovertebral hypertrophy. Mild spinal canal and severe bilateral foraminal stenosis. C6-C7: Disc osteophyte complex, facet and uncovertebral hypertrophy. Moderate right and mild left foraminal stenosis. No significant spinal canal stenosis. C7-T1: There is no significant canal or foraminal stenosis. The imaged paraspinal soft tissues appear unremarkable. IMPRESSION: Multilevel degenerative changes of the cervical spine as described. Findings are most pronounced at C5-C6 with disc extrusion contributing to severe bilateral foraminal stenosis. Assessment & Plan Assessment & Plan (1) Spondylolisthesis, cervical region: Code(s): M43.12 - Spondylolisthesis, cervical region Category: Medical (2) Cervical spondylosis: Code(s): M47.812 - Spondylosis without myelopathy or radiculopathy, cervical region Category: Medical (3) Neuroforaminal stenosis of cervical spine: Code(s): M48.02 - Spinal stenosis, cervical region Category: Medical (4) Degenerative disc disease, cervical: Code(s): M50.30 - Other cervical disc degeneration, unspecified cervical region Category: Medical (5) Muscle spasms of neck: Code(s): M62.838 - Other muscle spasm Category: Medical Plan The patient will continue with physical therapy to manage cervical arthritis and foraminal stenosis, as the symptoms have shown improvement for axial cervical pain. We reviewed neuromodulation with Sprint PNS trial vs RFA procedures given positive response with recent right sided cervical medial branch blocks. Patient reports minimal axial pain today and is interested to address right sided cervical radiculopathy as next steps. Schedule Right C6-C7 TFESI injection with local and fluoroscopy. If the pain relief from the injection is short-lived, a surgical consultation may be considered to explore further options. Expectations, risks and benefits were reviewed. Patient is aware he will be contacted to schedule this procedure. Continue Tylenol Arthritis, magnesium supplementation, lifestyle adjustments, good posture, avoid heavy lifting and supine sleep positions to mitigate risk factors. All questions and concerns have been answered and patient agreed with the plan. Follow up after injections and sooner as needed. Patient was informed and verbally consented to the use of an ambient scribe for clinic note documentation during this visit. Coding Level of Care Code Est Pt Level 4 (83099) Complex EM visit Add On G2211 Diagnoses Spondylolisthesis, cervical region M43.12 Cervical spondylosis M47.812 Neuroforaminal stenosis of cervical spine M48.02 Degenerative disc disease, cervical M50.30 Muscle spasms of neck M62.838
[2024-12-28 11:22] VITALS: BP 127/83; PULSE 70; O2SAT 98; BMI 27.8
--- OUTSIDE RECORDS SUMMARY | 2024-12-28 12:25 | XMS_ITS | Clinical Summary ---
Author Organization [facility] Address [address] [place] [address] Phone Care Team Providers Care Topstitcher Lockstitch Name Role Phone Physician, No Pcp Primary Care Provider Unavaila ble Allergies No known active allergies Medications methocarbamoL (ROBAXIN) 500 mg tablet Take 1 tablet (500 mg total) by mouth 2 (two) times a day for 10 days. 20 tablet 09/30/2024 Active Encounters Date Type Department Care Team Description 09/30/2024 3:54 PM EDT - 09/30/2024 4:54 PM EDT Emergency [facility] Emergency [address] [place] [address] Cervical radiculopathy (Primary Dx) Discharge [...] [facility] of Health Screening 10/01/2024 Influenza Vaccine (#1) 2025 HIB Vaccines Aged Out No longer [...] patient's age to complete this topic Insurance [facility] Care Teams Topstitcher Lockstitch Relationship Specialty Start Date End Date Physician, No Pcp PCP - General 09/30/24
--- OUTSIDE RECORDS SUMMARY | 2024-12-28 12:25 | XMS_ITS | Clinical Summary ---
Author Organization [facility] Address [address] [place] [address] Care Team Providers Care Embossed Or Impressed Lettering Painter Name Role Phone Michelle Jorgensen POLICE PATROL LIEUTENANT Primary Care Provider [phone] Source Comments PLEASE NOTE, if this patient is a minor, it may be UNLAWFUL to discuss sensitive information that is contained in these records (such as FAMILY PLANNING, MENTAL HEALTH or SUBSTANCE ABUSE) with the minor patient's parent or other person without the patient's specific authorization.[facility] Allergies No known active allergies Medications gabapentin (NEURONTIN) 300 mg capsuleIndications :Cervical radiculopathy Take 1 Capsule by mouth 2 (two) times daily as needed for other reason (Pain). 90 Capsule 1 Active Active Problems Problem Noted Date Diagnosed Date Cervical radiculopathy 10/15/2024 Overview (11/27/2024): 11/19/24 [facility] pain management -Being PT at [facility] location -use tylenol arthritis PRN and consider magnesium glycinate at bedtime. -avoid heavy lifting and poor sleeping positions -Report any exacerbations of symptoms -follow dietary recommendations to limit sugar and inflammatory foods -consider massage or acupuncture for complementary therapy 10/09/24 MRI cervical Impression Mild degenerative changes of the cervical spine as described. Findings are most pronoused at C5-C6 with disc extrusion contributing to several bilateral foraminal stenosis. Encounters Date Type Department Care Team Description 11/02/2024 4:00 PM EDT Office Visit [address] [phone] Michelle Jorgensen NP 10/07/2024 Interim Notes [address] [phone] Scotty Seg[place] 10/04/2024 Results Follow-Up [address] [phone] Michelle Jorgensen NP 10/02/2024 10:20 AM EDT Office Visit [address] [phone] Michelle Jorgensen NP from Last 3 Months Immunizations Immunization Administration [...] 73 11/02/2024 4:02 PM EDT Temperature 36 C (96.8 F) 11/02/2024 4:02 PM EDT Respiratory Rate 16 [...] 2015 Fecal DNA 2015 Flexible Sigmoidoscopy 2015 Imm-Pneumococcal 50+ (1 of 1 - PCV) 2020 [id number]-FNGRF-04 (3 - 2023- season) 2024 021, 07/19/2020 Imm-Zoster, Recombinant (2 of 2) 12/28/2024 11/03/19 25 Imm-Influenza (#1) 2025 Annual Wellness (Adult): Ind icated (All [...] Procedure Name Priority Date/Time Associated Diagnosis Comments REFERRAL TO PAIN MANAGEMENT Urgent 11/19/2024 3:00 AM EDT Routine adult health maintenance Cervical radiculopathy IMAGING SCANNED DOCUMENT 10/09/2024 3:00 AM EDT [...] draw from Last 3 Months Results * REFERRAL TO PAIN MANAGEMENT (11/19/2024 3:00 AM EDT) 11/19/2024 3:00 AM EDT Michelle Jorgensen NP REFERRAL Final Result * XR ORBIT (R/O METAL) [[id number]] ([facility]) (10/09/2024 3:00 AM EDT) 10/09/2024 3:00 AM EDT [facility] - 10/09/2024 3:14 PM EDT IMPRESSION: No evidence of radiopaque foreign body. Nicolás Penny MD Signed by Nicolás Penny MD Senior Net Software Developer provided for [facility] Read by: Nicolás Penny M.D Reviewed and Electronically Signed by: Consuelo Werner [facility] - 10/09/2024 3:14 PM EDT Original Report PROCEDURE: XR ORBITS SERIES INDICATION: Pre MRI screening. TECHNIQUE: three view(s) of the orbits were obtained. FINDINGS: There is no evidence of a radiopaque orbital foreign body. The visualized paranasal sinuses are clear. Procedure Note Default, [facility] Provider - 10/09/2024 Original Report PROCEDURE: XR ORBITS SERIES INDICATION: Pre MRI screening. TECHNIQUE: three view(s) of the orbits were obtained. FINDINGS: There is no evidence of a radiopaque orbital foreign body. The visualized paranasal sinuses are clear. IMPRESSION: IMPRESSION: No evidence of radiopaque foreign body. Nicolás Penny MD Signed by Nicolás Penny MD Senior Net Software Developer provided for [facility] Read by: Nicolás Penny M.D Reviewed and Electronically Signed by: Nicolás Penny M.D Michelle Jorgensen POLICE PATROL LIEUTENANT IMG XRAY Edited Result - Final [facility] Corporate Office [address], [address] [place] [address], [place] [phone] * IMAGING SCANNED DOCUMENT (10/09/2024 3:00 AM EDT) 10/09/2024 3:00 AM EDT Michelle Jorgensen POLICE PATROL LIEUTENANT SCAN IMAGING Final Result * HEPATITIS C AB W/RFLX HCV RNA, QT, RT PCR (10/02/2024 9:53 AM EDT) HEPATITIS C ANTIBODY NON-REACT GIRISH NON-REACT GIRISH [facility] Comment: HCV antibody was non-reactive. There is no laboratory evidence of HCV infection. In most cases, no further action is required. However, if recent HCV exposure is suspected, a test for HCV RNA (test code 10069) is suggested. For additional information please refer to http://education.[employer]/faq/JDA88p2 (This link is being provided for informational/ educational purposes only.) Blood Blood / Unknown 10/02/2024 9 :53 AM EDT 10/02/2024 9:54 AM EDT Narrative [facility] - 10/03/2024 6:55 AM EDT FASTING:NO [facility] POLICE PATROL LIEUTENANT LAB - BLOOD DRAW Edited Result - Final Performing Organization Address [facility] [address] [facility] de Phone Number [facility] [address] [address], [employer] [address] [address] * SYPHILIS ANTIBODY CASCADING REFLEX (10/02/2024 9:53 AM EDT) Pathologist [facility] T. PALLIDUM AB, EIA NEGATIVE NEGATIVE [facility] Comment: No antibodies to T. [...] AM EDT 10/02/2024 9:54 AM EDT Narrative [facility] - 10/03/2024 6:55 AM EDT FASTING:NO Michelle Jorgensen POLICE PATROL LIEUTENANT LAB - BLOOD DRAW Final Result Performing Organization Address [facility] [address]/[facility] de Phone Number [facility] [address] [address], [employer] [address] [address] * HIV 1/2 AG & AB W/RFLX (4TH GEN) (10/02/2024 9:53 AM EDT) Pathologist [facility] HIV AG/AB, 4TH GEN NON-REAC TIVE NON-REAC TIVE [facility] Comment: HIV-1 antigen and HIV-1/HIV-2 antibodies were not detected. There is no laboratory evidence of HIV infection. PLEASE NOTE: This information has been disclosed to you from records whose confidentiality may be protected by state law. If your state requires such protection, then the state law prohibits you from making any further disclosure of the information without the specific written consent of the person to whom it pertains, or as otherwise permitted by law. A general authorization for the release of medical or other information is NOT sufficient for this purpose. For additional information please refer to http://FedCyber.[employer]/faq/ZBV552 (This link is being provided for informational/ educational purposes only.) The performance of this assay has not been clinically validated in patients less than 2 years old. Blood Blood / Unknown 10/02/2024 9 :53 AM EDT 10/02/2024 9:54 AM EDT Narrative [facility] - 10/03/2024 6:55 AM EDT FASTING:NO [facility] [employer] POLICE PATROL LIEUTENANT LAB - BLOOD DRAW Final Result Performing Organization Address City/[facility] [address]/ZIP Co de Phone Number [facility] [address] [address], [employer] [address] [address] * TSH W/RFLX FREE T4 (10/02/2024 9:53 AM EDT) Pathologist [facility] TSH W/REFLEX TO FT4 0.66 0.40 - 4.50 mIU/L [facility] Blood Blood / Unknown 10/02/2024 9 :53 AM EDT 10/02/2024 9:54 AM EDT Narrative [facility] - 10/03/2024 6:55 AM EDT FASTING:NO [employer] [facility]ide[facility] POLICE PATROL LIEUTENANT LAB - BLOOD DRAW Edited Result - Final Performing Organization Address City/[facility] [address]/ZIP Co de Phone Number [facility] [address] [address], [employer] [address] [address] * BLOOD COUNT COMPLETE AUTO&AUTO DIFRNTL WBC (10/02/2024 9:53 AM EDT) Pathologist [facility] WHITE BLOOD CELL COUNT 8.5 3.8 - 10.8 Thousand/ uL [facility] RED BLOOD CELL COUNT 5.32 4.20 - 5.80 Million/u L [facility] HEMOGLOBIN 16.6 13.2 - 17.1 g/dL [facility] HEMATOCRIT 49.2 38.5 - 50.0 % [facility] MCV 92.5 80.0 - 100.0 fL [facility] MCH 31.2 27.0 - 33.0 pg [facility] MCHC 33.7 32.0 - 36.0 g/dL [facility] Comment: For adults, a slight decrease in the calculated MCHC value (in the range of 30 to 32 g/dL) is most likely not clinically significant; however, it should be interpreted with caution in correlation with other red cell parameters and the patient's clinical condition. RDW 13.0 11.0 - 15.0 % [facility] PLATELET COUNT 217 140 - 400 Thousand/ uL [facility] MPV 11.1 7.5 - 12.5 fL [facility] ABSOLUTE NEUTROPHILS 7,047 1,500 - 7,800 cells/uL [facility] ABSOLUTE LYMPHOCYTES 952 850 - 3,900 cells/uL [facility] ABSOLUTE MONOCYTES 408 200 - 950 cells/uL [facility] ABSOLUTE EOSINOPHILS 60 15 - 500 cells/uL [facility] ABSOLUTE BASOPHILS 34 0 - 200 cells/uL [facility] NEUTROPHILS PCT 82.9 % QUES [employer] [facility] LYMPHOCYTES 11.2 % [facility] [employer] [facility] MONOCYTES 4.8 % [facility] [email or web address] [facility] EOSINOPHILS 0.7 % [facility] BASOPHILS 0.4 % [facility] DI[facility] [email or web address] [facility] Blood Blood / Unknown 10/02/2024 9 :53 AM EDT 10/02/2024 9:54 AM EDT Narrative [facility] - 10/03/2024 6:55 AM EDT FASTING:NO us Michelle Jorgensen NP LAB - BLOOD DRAW Edited Result - Final [facility] [employer] [facility] [address] [address], [facility] [address] [place] [address] * HEMOGLOBIN GLYCOSYLATED A1C (10/02/2024 9:53 AM EDT) HEMOGLOBIN A1C 5.3 <5.7 % [employer] Comment: For the purpose of screening for the presence of diabetes: <5.7% Consistent with the absence of diabetes 5.7-6.4% Consistent with increased risk for diabetes (prediabetes) > or =6.5% Consistent with diabetes This assay result is consistent with a decreased risk of diabetes. Currently, no consensus exists regarding use of hemoglobin A1c for diagnosis of diabetes in children. According to [place] [employer] (ADA) guidelines, hemoglobin A1c <7.0% represents optimal control in non- diabetic patients. Different metrics may apply to specific patient populations. Standards of Medical Care in Diabetes(ADA). Blood Blood / Unknown 10/02/2024 9 :53 AM EDT 10/02/2024 9:54 AM EDT Narrative [facility] - 10/03/2024 6:55 AM EDT FASTING:NO Michelle Jorgensen POLICE PATROL LIEUTENANT LAB - BLOOD DRAW Edited Result - Final [facility] [address] [place] [id number], [employer] [address] [place] [phone] * (ABNORMAL) LIPID PANEL (10/02/2024 9:53 AM EDT) CHOLESTEROL, TOTAL 225(H) <200 mg/dL [employer] [facility] HDL CHOLESTEROL 51 > OR = 40 mg/dL [employer] TRIGLYCERIDES 188(H) <150 mg/dL [facility] LDL-CHOLESTEROL 142(H) 99 mg/dL (calc) [employer] Comment: Reference range: <100 Desirable range <100 mg/dL for primary prevention; <70 mg/dL for patients with CHD or diabetic patients with > or = 2 CHD risk factors. LDL-C is now calculated using the Josefina calculation, which is a validated novel method providing better accuracy than the Friedewald equation in the estimation of LDL-C. Sim ASHFORD et al. ZAHRA. 2013;310(19): 2650-1796 (http://education.Kelkoo/faq/SYZ759) CHOL/HDLC RATIO 4.4 <5.0 (calc) [facility] NON-HDL CHOLESTEROL 174(H) <130 mg/dL (calc) [facility] Comment: For patients with diabetes plus 1 major ASCVD risk factor, treating to a non-HDL-C goal of <100 mg/dL (LDL-C of <70 mg/dL) is considered a therapeutic option. Blood Blood / Unknown 10/02/2024 9 :53 AM EDT 10/02/2024 9:54 AM EDT Narrative [facility] - 10/03/2024 6:55 AM EDT FASTING:NO Michelle Jorgensen NP LAB - BLOOD DRAW Final Result [facility] [address] [address], [facility] [address] [address] * COMPREHENSIVE METABOLIC PANEL (10/02/2024 9:53 AM EDT) GLUCOSE 106 65 - 139 mg/dL [facility] Comment: Non-fasting reference interval UREA NITROGEN (BUN) 15 7 - 25 mg/dL [facility] CREATININE (blood) 0.86 0.70 - 1.30 mg/dL [facility] EGFR 103 > OR = 60 mL/min/1. 73m2 [facility] BUN/CREATININE RATIO SEE NOTE: [facility] Comment: Not Reported: BUN and Creatinine are within reference range. SODIUM 139 135 - 146 mmol/L [facility] POTASSIUM 5.1 3.5 - 5.3 mmol/L [facility] CHLORIDE 104 98 - 110 mmol/L [facility] CARBON DIOXIDE 25 20 - 32 mmol/L [facility] CALCIUM 9.5 8.6 - 10.3 mg/dL [facility] PROTEIN, TOTAL 7.6 6.1 - 8.1 g/dL [facility] ALBUMIN 4.8 3.6 - 5.1 g/dL [facility] GLOBULIN 2.8 1.9 - 3.7 g/dL (calc) [facility] ALBUMIN/GLOBULI N RATIO 1.7 1.0 - 2.5 (calc) [facility] BILIRUBIN, TOTAL 1.0 0.2 - 1.2 mg/dL [facility] ALKALINE PHOSPHATASE 71 35 - 144 U/L [facility] AST 18 10 - 35 U/L [facility] ALT 29 9 - 46 U/L [facility] Blood Blood / Unknown 10/02/2024 9 :53 AM EDT 10/02/2024 9:54 AM EDT Narrative [facility] - 10/03/2024 6:55 AM EDT FASTING:NO us Michelle Jorgensen NP LAB - BLOOD DRAW Edited Result - Final [facility] [address] [address], [facility] [address] [place] [address] from Last 3 Months Insurance [id number] Member Subscriber Plan / Payer (Ef fective 2023-Present) Name:Manuel Meadows Relation to Subscriber:Self Name:Manuel Meadows Payer ID:[id number] Type:Indemnity Address: [facility] [address] [place] [address] Care Teams Embossed Or Impressed Lettering Painter Relationship Specialty Start Date End Date Michelle Jorgensen NP [address] [place] [address] PCP - General Family Medicine, POLICE PATROL LIEUTENANT 10/12/24
== END 2024-12-28 11:30 | disposition home or self-care (01) ==
LOC: HO.PMC 11:18
PROVIDERS: Visit Provider Nurse Practitioner Family
DX: M43.12 Spondylolisthesis, cervical region (principal); M47.812 Spondylosis without myelopathy or radiculopathy, cervical region; M48.02 Spinal stenosis, cervical region; M50.30 Other cervical disc degeneration, unspecified cervical region; M62.838 Other muscle spasm
CPT/HCPCS: 99214; G2211

== ENCOUNTER → 2024-12-28 11:17 | Outpatient (BNVA) | payer OTHER, SELFPAY | PROVIDERS: Visit Provider Nurse Practitioner Family | DX: M43.12 Spondylolisthesis, cervical region (principal); M47.812 Spondylosis without myelopathy or radiculopathy, cervical region | CPT/HCPCS: 99212 ==